=== PATIENT | female | born 1960 | race Caucasian/White ===

== ENCOUNTER → 2016-05-03 | Outpatient (CLI) | payer BC ==
--- NOTE | 2016-05-11 15:13 | REP ---
BILATERAL DIGITAL SCREENING MAMMOGRAM: 05/03/2016. Clinical history: Screening examination. She has no current complaint, personal or family history of breast cancer. Comparison study: 05/22/2013, 06/07/2010 screening mammogram at [facility]. Delay in report awaiting the arrival of outside examinations. Findings: Two views were provided. There are scattered fibroglandular elements present in a pattern and distribution unchanged from the previous study. Large coarse calcifications are present, of no clinical significance. Scattered lymph nodes are seen in the axilla. In the lower inner quadrant right breast about 3 cm from the nipple is a rounded 5 mm nodule, new since the 2013 prior. There are no areas of architectural distortion, dominant mass, other nodules, skin thickening, clusters of microcalcification or other secondary signs of malignancy. Impression: 1. BIRADS ACR category 0, incomplete, needs additional imaging evaluation. Right breast diagnostic mammogram lower inner quadrant anteriorly to reevaluate the nodule with spot magnified CC and MLO views and a true ML view as well as a breast ultrasound for further evaluation of that finding, if it persists. This mammogram was interpreted with the aid of an FDA-approved computer-aided detection system. The patient states that she/he has not had a clinical breast exam in over a year. The patient letter being requested is M0. Signed by Fazal Garcia MD 05/11/2016 08:13 P
== END ==
LOC: M WHC 10:43
PROVIDERS: ATTEND Nurse Practitioner Family
DX: R92.2 Inconclusive mammogram (principal)

== ENCOUNTER → 2016-05-23 | Outpatient (CLI) | payer BC ==
--- NOTE | 2016-05-23 14:54 | REP ---
DIAGNOSTIC MAMMOGRAM RIGHT BREAST WITH RIGHT BREAST ULTRASOUND: Diagnostic mammogram right breast performed with multiple spot compression views obtained. These compression views confirm the presence of a smoothly marginated, well-defined nodule in the lower inner right breast measuring about 6 mm in maximum diameter. Margins are well defined and fairly smooth. There are no associated clustered microcalcifications. Real-time sonographic evaluation of the lower inner right breast demonstrates a 6 mm cyst corresponding to the mammographic abnormality. This is benign. IMPRESSION: ACR 2 benign. Subcentimeter nodule confirmed by mammography, represents a cyst by ultrasound and is benign. Recommend followup mammogram in one year. Patient letter M1. Signed by Phoenix Lagos MD 05/23/2016 04:27 P
== END ==
LOC: M RAD 13:50
DX: N60.01 Solitary cyst of right breast (principal)
CPT/HCPCS: 76642; G0206